=== PATIENT | male | born 1960 | race Caucasian/White ===

== ENCOUNTER → 2019-11-17 | Outpatient (CLI) | payer OTHER | LOC: MHCPAIN 13:54 | DX: M47.817 Spondylosis without myelopathy or radiculopathy, lumbosacral region (principal); M54.5 Low back pain; M54.2 Cervicalgia; G89.29 Other chronic pain; E11.40 Type 2 diabetes mellitus with diabetic neuropathy, unspecified | CPT/HCPCS: G0463 ==

== ENCOUNTER 2021-05-20 10:02 | Day surgery (SDC) | payer OTHER ==
[~2021-05-20] VITALS: Ht 180.3 cm; Wt 101.5 kg
[2021-05-20 11:24] VITALS: BP 128/89; PULSE 56; TEMP 97.6
[2021-05-20 12:45] VITALS: BP 122/71; PULSE 48
--- NOTE | 2021-05-20 12:45 | NUR ---
Pt to GI [facility] 8 via cart. Pt ambulates to recliner with stand by assist. Pt denies pain or nausea. Apple juice given per pt request. in room. Pt denies needs at this time. Call light within reach.
[2021-05-20 13:00] VITALS: BP 140/75; PULSE 44
--- NOTE | 2021-05-20 13:00 | NUR ---
Pt continues to rest. Denies needs. Call light within reach.
[2021-05-20 13:15] VITALS: BP 125/71; PULSE 43
--- NOTE | 2021-05-20 13:15 | NUR ---
Pt continues to rest. Denies needs. Call light within reach.
[2021-05-20 13:30] VITALS: BP 120/73; PULSE 48
--- NOTE | 2021-05-20 13:30 | NUR ---
Discharge instructions reviewed. Pt voices understanding. IV site discontinued with all parts intact. Pt up to dress. Call light within reach.
--- NOTE | 2021-05-20 13:30 | NUR ---
Discharge instructions reviewed. Pt voices understanding. IV site discontinued with all parts intact. Pt up to dress. Call light within reach.
--- NOTE | 2021-05-20 13:40 | NUR ---
Pt escorted to private car via wheel chair. Pt accompanied home by his son.
== END 2021-05-20 13:40 | disposition home or self-care (01) ==
LOC: SDCO 10:02
DX: Z12.11 Encounter for screening for malignant neoplasm of colon (principal); K21.9 Gastro-esophageal reflux disease without esophagitis; K22.70 Barrett's esophagus without dysplasia; K57.30 Diverticulosis of large intestine without perforation or abscess without bleeding; K58.9 Irritable bowel syndrome, unspecified; G47.33 Obstructive sleep apnea (adult) (pediatric); G89.29 Other chronic pain; E78.5 Hyperlipidemia, unspecified; E11.9 Type 2 diabetes mellitus without complications; F41.9 Anxiety disorder, unspecified; F19.20 Other psychoactive substance dependence, uncomplicated; Z79.84 Long term (current) use of oral hypoglycemic drugs; Z86.010 Personal history of colon polyps; Z79.899 Other long term (current) drug therapy; Z79.82 Long term (current) use of aspirin; Z79.891 Long term (current) use of opiate analgesic; Z99.89 Dependence on other enabling machines and devices; Z98.84 Bariatric surgery status
CPT/HCPCS: J2704; J7030